=== PATIENT | male | born 1980 | race Caucasian/White ===

== ENCOUNTER 2022-08-07 17:36 | Emergency (ER) | payer OTHER, SELFPAY ==
[2022-08-07 17:48] VITALS: BP 151/90; PULSE 59; RESP 14; TEMP 36.7; O2SAT 99; BMI 24.3
--- NOTE | 2022-08-07 18:13 | ED_ITS ---
HPI - Male Genitourinary General: Chief complaint: Urogenital-Male Stated complaint: urinary pain Time Seen by Provider: 08/07/22 17:56 Source: patient Mode of arrival: ambulatory Limitations: no limitations History of Present Illness: 42-year-old male states that he was seen in [place] as he is having severe right-sided flank pain on the seventh he had a CT scan that showed an 11 mm kidney stone he states he lives in [place] she is driving home he stopped at the [facility] they did not have urology did give him a pain shot and he drove straight here states he is currently pain-free but [facility] to 4 hours ago he denies any dysuria denies any vomiting or diarrhea. Associated symptoms: Deny nausea or vomiting Review of Systems Const: Denies: fever(s), chills, body aches or change in appetite Eyes: Denies: blurry vision or eye discomfort ENMT: Denies: throat pain or dental pain Card: Denies: chest pain Resp: Denies: dyspnea GI: Denies: abdominal pain, nausea, vomiting or diarrhea : Reports: flank pain Musc: Denies: neck pain or back pain Skin/Breast: Denies: rash Neuro: Denies: headache(s) Psych: Denies: depression Edgar/Lymph: Denies: easy bruising All/Imm: Denies: urticaria PFSH ED PFSH: Medical History (Updated 08/07/22 @ 20:29 by Yanira Zaidi MD) No pertinent past medical history Social History (Updated 08/07/22 @ 18:14 by Yanira Zaidi MD) Substance/Drug Use: never Physical Exam Const: COMMON NORMALS: no acute distress, patient oriented x3 and healthy appearing HENMT: COMMON NORMALS: normocephalic and atraumatic HEAD & SCALP: normocephalic and atraumatic Eye: COMMON NORMALS: Equal, round and reactive pupils present and EOMs intact bilaterally PUPIL: Yes Equal, round and reactive pupils present Neck/C-Spine: COMMON NORMALS: full ROM and supple Chest: COMMONS NORMALS: normal inspection of the chest and normal palpation of entire chest wall Resp: COMMON NORMALS: normal respiratory effort, No retractions, No use of accessory muscles and clear to auscultation bilaterally AUSCULTATION: clear to auscultation bilaterally Cardio: COMMON NORMALS: regular rate, regular rhythm and No murmurs present (Cardio) RATE: regular rate RHYTHM: regular rhythm GI: COMMON NORMALS: Normal to inspection, nondistended, normoactive bowel sounds present, Soft to palpation, non-tender and no masses PALPATION: Yes Soft to palpation Extremity: COMMON NORMALS: normal to inspection and full ROM Neuro: COMMON NORMALS: patient oriented x3, moves all extremities and no focal motor deficits Psych: COMMON NORMALS: mental status grossly normal, Normal thought process present and cooperative THOUGHT PROCESS: Normal thought process present Skin: COMMON NORMALS: no rashes or lesions noted and no wounds GENERAL SKIN EXAM: no rashes or lesions noted Course Vital Signs: Vital signs: Vital Signs Temperature 98.1 F 08/07/22 17:48 Pulse Rate 59 L 08/07/22 20:32 Respiratory Rate 16 08/07/22 20:32 Blood Pressure 143/93 08/07/22 20:32 Pulse Oximetry 99 08/07/22 20:32 Oxygen Delivery Me thod 08/07/22 20:32 MDM - Male Medical Decision Making Patient presents here with kidney stone large 1 on the right side I did speak to Dr. Meneses he will follow-up tomorrow and likely get lithotripsy on Thursday we will place him on pain meds he is pain-free here no UTI he is stable for discharge she is return if worsening. Lab Data 08/07/22 18:30 08/07/22 18:30 Radiology Impressions Abdomen/Pelvis CT 08/07/22 19:05 IMPRESSION: 1. Bilateral obstructive uropathy, as described above. 2. Additional findings, as above. Laboratory Results WBC 8.4 10^3/uL (4.0-10.0) 08/07/22 18:30 RBC 4.71 10^6/uL (4.1-5.3) 08/07/22 18:30 Hgb 14.4 g/dL (11.7-16.6) 08/07/22 18:30 Hct 41.1 % (42.0-52.0) L 08/07/22 18:30 MCV 87.3 fl (80-94) 08/07/22 18:30 MCH 30.6 pg (28.0-34.0) 08/07/22 18:30 MCHC 35.0 g/dL (30.0-36.0) 08/07/22 18: RDW 11.9 % (12.1-15.1) L 08/07/22 18: Plt Count 155 10^3/cmm (130-400) 08/07/22 18:30 MPV 11.2 fL (7.4-10.4) H 08/07/22 18: Neut % (Auto) 70.2 % 08/07/22 18: Lymph % (Auto) 20.1 % 08/07/22 18: Meeker % (Auto) 7.4 % 08/07/22 18: Eos % (Auto) 1.9 % 08/07/22 18: Baso % (Auto) 0.2 % 08/07/22 18: Neut # (Auto) 5.85 10^3/uL (1.8-7.7) 08/07/22 18: Lymph # (Auto) 1.7 10^3/uL (0.8-4.8) 08/07/22 18:30 Meeker # (Auto) 0.6 10^3/uL (0.2-0.9) 08/07/22 18: Eos # (Auto) 0.2 10^3/uL (0.0-0.8) 08/07/22 18: Baso # (Auto) 0.0 10^3/uL (0.0-0.1) 08/07/22 18: Nucleated RBC % (auto) 0 % 08/07/22 18: Nucleated RBCs # 0.0 /100WBC 08/07/22 18:30 Sodium 138 mmol/L (136-145) 08/07/22 18:30 Potassium 3.5 mmol/L (3.5-5.1) 08/07/22 18: Chloride 103 mmol/L (98-107) 08/07/22 18: Carbon Dioxide 22 mmol/L (22-29) 08/07/22 18:30 Anion Gap 16.5 (5-19) 08/07/22 18:30 BUN 24 mg/dL (6-20) H 08/07/22 18:30 Creatinine 1.8 mg/dL (0.7-1.2) H 08/07/22 18:30 GFR Calculation 41.6 mL/min (90-130) L 08/07/22 18:30 Glucose 107 mg/dL (65-115) 08/07/22 18:30 Calculated Osmolality 291 mOsm/kg (285-295) 08/07/22 18:30 Calcium 9.1 mg/dL (8.5-10.5) 08/07/22 18:30 Total Bilirubin 0.3 mg/dL (0.15-1.2) 08/07/22 18:30 AST 18 U/L (0-40) 08/07/22 18:30 ALT 19 U/L (0-41) 08/07/22 18:30 Alkaline Phosphatase 72 U/L (40-130) 08/07/22 18:30 Total Protein 6.7 g/dL (6.6-8.7) 08/07/22 18:30 Albumin 4.2 g/dL (3.5-5.2) 08/07/22 18:30 Globulin 2.5 g/dL (1.3-4.6) 08/07/22 18:30 Lipase 37 U/L (13-60) 08/07/22 18:30 Urine Color Yellow (Yellow) 08/07/22 18:34 Urine Appearance Clear (CLEAR) 08/07/22 18:34 Urine pH 5 (5-7) 08/07/22 18:34 Ur Specific Boley 1.020 (1.005-1.030) 08/07/22 18:34 Urine Protein Neg (Negative) 08/07/22 18:34 Urine Glucose (UA) Norm (Normal) 08/07/22 18:34 Urine Ketones 1+ (Negative) H 08/07/22 18:34 Urine Blood 3+ (Negative) H 08/07/22 18:34 Urine Nitrate Negative (Negative) 08/07/22 18:34 Urine Bilirubin Neg (Negative) 08/07/22 18:34 Urine Urobilinogen Neg mg/dL (Negative) 08/07/22 18:34 Ur Leukocyte Esterase Negative (Negative) 08/07/22 18:34 Urine RBC 5-10 /hpf (0-2) H 08/07/22 18:34 Urine WBC 10-15 /hpf (0-5) H 08/07/22 18:34 Ur Squamous Epith Cells None /hpf (0-5) 08/07/22 18:34 Amorphous Sediment Not Reportable 08/07/22 18:34 Urine Bacteria None /hpf (NONE) 08/07/22 18:34 Discharge Plan Discharge Patient Disposition: Home Clinical Impression: Kidney stone Prescriptions: New ondansetron 4 mg tablet,disintegrating 4 mg PO Q6H PRN (Reason: nausea and vomiting) Qty: 14 0RF tramadol 50 mg tablet 50 mg PO BID PRN (Reason: pain) Qty: 20 0RF hydrocodone-acetaminophen 5-325 mg tablet 1 tab PO Q6H PRN (Reason: pain) Qty: 10 0RF Discharge Orders: Discharge ED (Routine); Ordered 08/07/22 Ordered By: Yanira Zaidi Referrals: Laura Niño MD [Primary Care Provider] - Discharge Diet: Advance as tolerated Discharge Activity: Resume usual activity Patient Instructions: Kidney Stones (ED) Coding Level of Care Code ED Furniture Removalist'S Assistant for Peter Nesbitt
[2022-08-07 18:42] LABS: Basophils % 0.2 %; Eosinophils # 0.2 10^3/uL (0.0-0.8); Eosinophils % 1.9 %; Hematocrit 41.1 % (42.0-52.0); Hemoglobin 14.4 g/dL (11.7-16.6); Lymphocytes # 1.7 10^3/uL (0.8-4.8); Lymphocytes % 20.1 %; Mean Corpuscular Hemoglobin 30.6 pg (28.0-34.0); Mean Corpuscular Volume 87.3 fl (80-94); Mean Platelet Volume 11.2 fL (7.4-10.4); Monocytes # 0.6 10^3/uL (0.2-0.9); Monocytes % 7.4 %; Neutrophils # 5.85 10^3/uL (1.8-7.7); Neutrophils % 70.2 %; Nucleated Red Blood Cells % 0 %; Platelet Count 155 10^3/cmm (130-400); Red Blood Count 4.71 10^6/uL (4.1-5.3); Red Cell Distribution Width 11.9 % (12.1-15.1); White Blood Count 8.4 10^3/uL (4.0-10.0)
[2022-08-07 19:01] LABS: Alanine Aminotransferase 19 U/L (0-41); Albumin Level 4.2 g/dL (3.5-5.2); Alkaline Phosphatase 72 U/L (40-130); Anion Gap 16.5 (5-19); Aspartate Amino Transferase 18 U/L (0-40); Blood Urea Nitrogen 24 mg/dL (6-20); Calcium 9.1 mg/dL (8.5-10.5); Carbon Dioxide 22 mmol/L (22-29); Chloride 103 mmol/L (98-107); Globulin 2.5 g/dL (1.3-4.6); Glomerular Filtration Rate 41.6 mL/min (90-130); Glucose 107 mg/dL (65-115); Lipase 37 U/L (13-60); Osmolality Calculated 291 mOsm/kg (285-295); Potassium 3.5 mmol/L (3.5-5.1); Sodium 138 mmol/L (136-145); Total Bilirubin 0.3 mg/dL (0.15-1.2); Total Protein 6.7 g/dL (6.6-8.7)
[2022-08-07 19:04] LABS: Creatinine Clr Calc Pharmacy 56.4441
--- NOTE | 2022-08-07 19:05 | CTR_ITS ---
PROCEDURE INFORMATION: Exam: CT Abdomen And Pelvis Without Contrast Exam date and time: 08/07/2022 8:02 PM Age: 42 years old Clinical indication: Abdominal pain; Flank; Right; Additional info: Right flank pain TECHNIQUE: Imaging protocol: Computed tomography of the abdomen and pelvis without contrast. Axial, coronal and sagittal reformatted images were created and reviewed. Radiation optimization: All CT scans at this facility use at least one of these dose optimization techniques: automated exposure control; mA and/or kV adjustment per patient size (includes targeted exams where dose is matched to clinical indication); or iterative reconstruction. REPORTING DATA: Count of CT and Cardiac NM exams in prior 12 months: This patient has received 0 known CTs and 0 known cardiac nuclear medicine studies in the 12 months prior to the current study. COMPARISON: No relevant prior studies available. RADIATION DOSE METRICS: Total DLP (mGy-cm): 504.53 FINDINGS: Liver: Unremarkable. Gallbladder and bile ducts: No radiodense gallstones. No biliary ductal dilatation. Pancreas: Unremarkable. Spleen: Mild splenomegaly. Adrenal glands: Normal. No mass. Kidneys and ureters: Mild to moderate right-sided hydronephrosis, secondary to a 9 mm proximal right ureteral calculus (axial image 111 and coronal image 62). Mild left-sided hydroureteronephrosis and perinephric/periureteral stranding, secondary to 2 adjacent distal left ureteral calculi, measuring up to 4 mm (axial images 186 and 187 and coronal images 75-77). Stomach and bowel: No bowel wall thickening. No obstruction. No pneumatosis. Appendix: Normal. Intraperitoneal space: Trace nonspecific free pelvic fluid, likely reactive. No organized fluid collection. No free air. Vasculature: Unremarkable. No aneurysm. Lymph nodes: No pathologically enlarged lymph nodes. Urinary bladder: Unremarkable as visualized. Reproductive: Unremarkable. Bones/joints: No acute osseous abnormality. Soft tissues: Unremarkable. CT/CT kidney stone [id number] IMPRESSION: 1. Bilateral obstructive uropathy, as described above. 2. Additional findings, as above.
--- NOTE | 2022-08-07 19:06 | PC.NURSE ---
Report from LENY Durham. Pt resting quietly. Denies needs at this time.
[2022-08-07 19:08] VITALS: BP 146/94; PULSE 61; RESP 16; O2SAT 99
[2022-08-07 19:19] LABS: Add Urine Microscopic? YES; Bilirubin Urine Neg (Negative); Blood Urine 3+ (Negative); Glucose Urine UA Norm (Normal); Ketones Urine 1+ (Negative); Leukocyte Esterase Urine Negative (Negative); Nitrate Urine Negative (Negative); Protein Urine Neg (Negative); Urine Appearance Clear (CLEAR); Urine Color Yellow (Yellow); Urobilinogen Urine Neg (Negative); pH Urine 5 (5-7)
[2022-08-07 20:32] VITALS: BP 143/93; PULSE 59; RESP 16; O2SAT 99
--- NOTE | 2022-08-08 09:46 | DCPLANNER ---
Addendum entered by Shannan Pink 08/12/22 07:30: Patient had an appointment scheduled with urology - patient did attend appointment. Original Note: underwriting manager had message to schedule a followup appointment for patient with urology. underwriting manager sent patients information to the front office staff at urology. Patients information will be printed and reviewed. Clinic will call patient with appointment information.
== END 2022-08-07 20:40 | disposition home or self-care (01) ==
PROVIDERS: Emergency Provider Emergency Medicine; PCP Family Medicine
DX: N20.0 Calculus of kidney (principal); N13.9 Obstructive and reflux uropathy, unspecified
CPT/HCPCS: 36415; 74176; 80053; 81001; 83690; 85025; 99284

== ENCOUNTER 2022-08-11 07:02 | Day surgery (SDC) | payer OTHER, SELFPAY ==
[2022-08-08 16:54] VITALS: BMI 24.3
[2022-08-11] VITALS (8 sets, daily range): BP systolic 100–153; BP diastolic 44–90; PULSE 46–98; RESP 12–20; TEMP 36.1–36.3; O2SAT 95–100
--- NOTE | 2022-08-11 07:09 | XR_ITS ---
WS: [id number] XR KUB [id number] REASON FOR EXAM: Preop treatment bilateral ureteral calculi FINDINGS: Mid right ureteral calculus at the L3 level. This appears unchanged in position compared to the CT sc an of 08/07/2022. Distal left ureteral calculus demonstrated on CT scan of 08/07/2022 is not readily identifiable. No other significant abnormality. XR/XR KUB [id number] IMPRESSION: Right ureteral calculus as above.
[2022-08-11] MEDS: sodium chloride 0.9% 1,000 ML 30 ML IV (07:40)
--- NOTE | 2022-08-11 08:05 | ANES.PREANE2 ---
Pre-Anesthetic Assessment Height/Weight: Height 1.78 m Weight 77.111 kg Temp Pulse Resp BP Pulse Ox O2 Del Method 97.0 F L 59 L 18 135/82 97 08/11/22 07:28 08/11/22 07:28 08/11/22 07:28 08/11/22 07:28 08/11/22 07:28 08/11/22 07:33 Preop Diagnosis: Right proximal ureteral stone with obstruction, left distal ureteral stone Operation Date: 08/11/22 08:40 Proposed Procedures p CYSTOSCOPY RIGHT EXTRACORPOREAL SHOCKWAVE LITHOTRIPSY STENT LEFT URETEROSCOPY LASER [id number], N20.9(Not Applicable) - MD silverio Aparicio ESWL(Right) - MD silverio Aparicio Ureteral Stent Placement(Bilateral) - MD silverio Aparicio Ureteroscopy(Not Applicable) - MD silverio Aparicio Laser Lithotripsy(Left) - Jason Meneses MD Familial anesthetic complications: none Was Beta Donald taken within 24 hours: N/A Was Clonidine taken within 24 hours: N/A Last intake: Intake Last Liquid Date 08/10/22 Last Liquid Time 23:30 Last Solid Date 08/10/22 Last Solid Time 23:30 Social Alcohol and No tobacco Exam alert, oriented x 3, clear to auscultation bilaterally and regular rate & rhythm Airway Submandibular: within normal limits Cervical ROM: within normal limits Mallampati: Class II Dentition: full Metabolic Hyperlipidemia Anesthetic Plan ASA status: 2 Anesthesia: General Medications/Allergies Home Medications Medication Instructions Recorded Confirmed Last Taken Type hydrocodone 5 mg-acetaminophen 325 1 tab PO Q6H PRN pain #10 tabs 08/07/22 08/10/22 Unknown Rx mg tablet ondansetron 4 mg disintegrating 4 mg PO Q6H PRN nausea and 08/07/22 08/10/22 Unknown Rx tablet vomiting #14 tabs tramadol 50 mg tablet 50 mg PO BID PRN pain #20 tabs 08/07/22 08/10/22 08/10/22 Rx atorvastatin 40 mg tablet 40 mg PO DAILY 08/08/22 08/10/22 08/10/22 History Allergies Allergy/AdvReac Type Severity Reaction Status Date / Time No Known Allergies Allergy Verified 08/07/22 17:52 PFSH Anesthesia Medical History Urolithiasis Data Anesthesia Cardiac Studies: No Data to Display
--- NOTE | 2022-08-11 08:08 | W.PM.OPSUD ---
Surgery/Procedure H&P Update DATE OF PROCEDURE: August 11, 2022 DATE H&P PERFORMED: 08/08/22 CHANGES TO PREVIOUS DOCUMENTATION: Physical exam: Alert oriented no acute distress HEENT atraumatic normocephalic Neck good range of motion Chest normal movements Cardiovascular regular rate and rhythm no murmurs Respiratory clear to auscultation no wheezes Abdomen is soft nontender no palpable masses Extremities without edema. Good range of motion Neurologic normal movements of all extremities. No focal deficit Preoperative KUB: The right mid ureteral stone is visualized well. I cannot see the left distal ureteral stones. Symptoms: Has become asymptomatic from the left distal ureteral stone perspective. He has not seen the left stone pass but I cannot clearly see it on the KUB. RECOMMENDATIONS: 1. We will place a stent on the right side preoperatively for a cystoscopy. 2. Left retrograde ureteropyelogram to confirm presence or absence of the left distal ureteral stone seen on CT scan. If the stone is still present then follow through with ureteroscopy laser lithotripsy of the left distal ureteral stone and treat the RIGHT ureteral stone with ESWL I explained all the above in detail with the patient. We reviewed again the rationale for the procedure. Risk benefits discussed. Informed consent obtained to proceed as outlined. No contraindications to surgery. He is not on any type of blood thinners PREOP DIAGNOSIS: Right proximal ureteral stone with obstruction, left distal ureteral stone PLANNED PROCEDURE: Operation Date: 08/11/22 08:40 Proposed Procedures p CYSTOSCOPY RIGHT EXTRACORPOREAL SHOCKWAVE LITHOTRIPSY STENT LEFT URETEROSCOPY LASER [id number], N20.9(Not Applicable) - Jason Meneses MD s ESWL(Right) - Jason Meneses MD s Ureteral Stent Placement(Bilateral) - Jason Meneses MD s Ureteroscopy(Not Applicable) - Jason Meneses MD s Laser Lithotripsy(Left) - Jason Meneses MD
[2022-08-11] MEDS: levofloxacin-dextrose 5 % 500 MG/100 ML PREMIX 100 MG IV (08:30)
--- NOTE | 2022-08-11 08:30 | P.OP_ITS ---
Operative Report Date of procedure: August 11, 2022 Pre-op diagnosis: Bilateral obstructing ureteral calculi Post-op diagnosis: Persistent large right proximal/mid ureteral stone Preoperatively spontaneously passed left distal ureteral stone Procedure done: 1. Cystoscopy with left retrograde ureteropyelogram 2. Right retrograde ureteropyelogram 3. Right ureteral extracorporeal shockwave lithotripsy 4. Right ureteroscopy and ureteral stent placement Implants: Right ureteral stent (6 Norwegian by 28 cm double-pigtail without string) Pathology: None Surgeon: Gideon Guitar Repair Technician: Edgard Farmer: Lithotripsy Rn Anesthesiology Estimated blood loss: None Urine output: Not measured Complications: None Findings: Anesthesia: General Condition: Stable Disposition: PACU Intraoperative findings: * LEFT retrograde ureteropyelogram demonstrated that the left ureteral stone had passed * Right ureteral calculus responded well to treatment with ESWL. Stent left indwelling but it was difficult to place and required direct visualization with ureteroscopy in order to negotiate the inflamed area. * On retrospect is clear that the stone had been there in the right ureter for some period of time creating an intense amount of inflammatory changes which made it difficult to pass the wire even after the stone was adequately fragmented. * For that reason it is anticipated that the stent will need to remain in place for several weeks with follow-up x-rays. It may require a relook ureteroscopy after passive dilation with the stent if the fragments are not easily passing through that narrowed area identified on ureteroscopy Brief History: Rai is a very pleasant 42-year-old white male with a history of recurrent stones having passed 4 spontaneously previously. [place] he had a severe left renal colicky episode and had a CT scan that showed obstructing stones. Was seen here again in our emergency department with complaints of refractory pain and CT scan showed a large 11 mm stone in the right proximal ureter with moderate to severe obstruction and a 4 to 5 mm stone in the LEFT distal ureter with significant obstruction as well. His creatinine was mildly elevated. He had no evidence of infection and he agreed to proceed with treatment. The plan was to perform an endoscopic treatment of the left distal ureteral stone and a ESWL to the right ureteral stone more proximally located. KUB preoperatively today demonstrated no easily identifiable stone in the left ureter and his symptoms had resolved. The right larger stone was easily identified in the right mid ureter We elected to perform a cystoscopy and LEFT retrograde ureteropyelogram to confirm presence or absence of the left distal ureteral stone and then proceed with stent placement and treatment of the right ureteral stone with ESWL. If the stone was still left plans were to proceed with initial approach of endoscopic treatment laser lithotripsy of that stone. Procedure: After routine preoperative evaluation examination and obtaining of informed consent he was taken to the operating suite on 08/11/2022 where general anesthesia was administered without difficulty after appropriate timeout was performed, SCDs confirmed to be functioning, prepped and draped in usual sterile fashion dorsolithotomy position pain careful attention to avoiding pressure points. 21 Norwegian cystoscope with 30 degree lens was introduced into the urethral meatus and advanced into the bladder to videoscopy. The bladder was systematically examined. No stone was seen. An 8 Norwegian cone-tip catheter was intubated into the LEFT ureteral orifice for LEFT RETROGRADE URETEROPYELOGRAM demonstrating: No filling defect consistent with a stone seen previously on CT scan. Normal flow of urine in a retrograde fashion in course and caliber of the ureter. Good drainage after the bulb was removed. Attention was then directed to the right side. A flexible tip guidewire was advanced at the right ureter but could not be passed proximal to the stone. It was curling at the distal tip of the stone. This wire was then exchanged for a Glidewire which same results. An open-ended ureteral catheter was then advanced just below the stone over the guidewire but this still did not facilitate passage. At this point the attempt at placement of a stent was abandoned with intention of placing it after ESWL treatment. He was then repositioned such that the stone was located at focal point with a shock head position posteriorly. Shockwave was initiated at a rate of 60 and a low intensity with advancement to an intensity of 6. A total of 1000 shocks were administered from the posterior shock head position. There was change noted with some proximal migration of fragments with the patient in Trendelenburg position. At 1000 shocks the shock it was then positioned anteriorly to approach the stone from a different angle. A total of 2500 shocks were administered with further change. The rate was increased to 90 for the final 1000 shocks The cystoscope was then passed back into the bladder and an 8 Norwegian cone-tip catheter was intubated into the RIGHT ureteral orifice for RIGHT RETROGRADE URETEROPYELOGRAM which demonstrated normal flow of contrast up the right ureter with some delay of contrast pushing past the stone fragments. There appeared to be a narrowed area just below the most distal stone fragment collection. Contrast did flow all the way into the kidney though. A flexible tip guidewire was then advanced up the right ureter but still could not be manipulated beyond the cluster of small fragments. An open-ended ureteral catheter was advanced over the guidewire which still did not facilitate that. A Glidewire was attempted as well again with no success. At this point it was decided to perform a ureteroscopy to see if that would facilitate passage. The cystoscope was then backloaded over the guidewire which was kept well below the level of the stone treatment to avoid any undue pressure on the ureter at that point. The distal ureter was dilated with a 15 Norwegian 10 cm balloon with no waist at 6 rosalino of pressure. A 7 Norwegian offset semirigid ureteroscope was then advanced over the guidewire up the right ureter. At the level of the ureter just below the stone fragment collection there was some small blood clots. There was a distinct narrowed area of the ureter and the guidewire was manipulated through this under direct vision initially resistant to passage but then passing through the cluster of stone fragments following the ureter as per contrast in the ureter up into the upper pole calyx where the wire curled. The ureteroscope was then removed leaving the wire in place and cystoscope was backloaded over the guidewire and a 6 Norwegian by 28 cm double-pigtail stent was advanced over the guidewire through the cystos cope into appropriate position as confirmed via fluoroscopy and cystoscopy stent was confirmed to be functioning well. The bladder was drained. He tolerated procedure well without complications and was awakened in the operating room and returned to PACU in stable condition PLANS: 1. Anticipate discharge from outpatient surgery 2. We will need to maintain the stent for an extended period of time for passive dilation and healing of the very inflamed ureter where the stone had been wedged for quite some period of time. 3. Is very likely that he will require relook ureteroscopy to reassess the ureter unless there is early and complete clearance of stone fragments. 4. I anticipate that the stone fragments may have some difficulty passing even with passive dilation of the stent due to the intense inflammatory change.
--- NOTE | 2022-08-11 09:11 | SUR.OPER ---
OMNIPAQUE 350MGI/ML 10ML TO STERILE FILED. LOT #[id number]. EXP 10/24/24. 3ML USED. 7 ML WASTED
[2022-08-11] MEDS: meperidine 50 mg/mL INJ 12.5 MG IVP (11:11)
--- NOTE | 2022-08-11 16:54 | ANE.PACU2 ---
Inpatient post-anesthesia follow up: Airway intact: Yes Vital signs: Temperature 97 F Pulse Rate 46 Respiratory Rate 18 Blood Pressure 131/83 Pulse Oximetry 99 Oxygen Delivery Me thod Room Air Oxygen Flow Rate 6 Fraction of Inspir ed Oxygen Hydration adequate: Yes Nausea and vomiting: No Pain level: 3 Mental status: Baseline
== END 2022-08-11 12:23 | disposition home or self-care (01) ==
PROVIDERS: Visit Provider Urology
PROC: 0TJB8ZZ Inspection of Bladder, Via Natural or Artificial Opening Endoscopic (ICD-10-PCS; CPT 52000; principal; 2022-08-11 08:30)
PROC: (CPT 50590; 2022-08-11 08:30)
PROC: (CPT 50605; 2022-08-11 08:30)
PROC: 0TJ98ZZ Inspection of Ureter, Via Natural or Artificial Opening Endoscopic (ICD-10-PCS; CPT 52351; 2022-08-11 08:30)
PROC: (CPT 74420; 2022-08-11 08:30)
DX: N20.1 Calculus of ureter (principal)
CPT/HCPCS: 50590; 52005; 74018; J1100; J1956; J2175; J2405; J2704; J3010; J3490; J7030

== ENCOUNTER 2022-09-02 14:45 | Outpatient (CLI) | payer OTHER, SELFPAY ==
--- NOTE | 2022-09-02 15:00 | XR_ITS ---
WS: [id number] XR KUB [id number] REASON FOR EXAM: STONES FINDINGS: Properly positioned right ureteral stent. Previous complex shape calculus in the mid left ureter is n ow fragmented and adjacent to the ureteral stent at the L4 transverse process level. Previous distal left ureteral calculi demonstrated on the CT scan of 08/07/2022 are not identified on t he current examination. No other urinary tract calculi. XR/XR KUB [id number] IMPRESSION: Right ureteral stent with fragmentation of right ureteral calculus.
== END 2022-09-02 14:46 | disposition home or self-care (01) ==
PROVIDERS: PCP Urology; Visit Provider Urology
DX: N20.9 Urinary calculus, unspecified (principal); Z96.0 Presence of urogenital implants; N20.1 Calculus of ureter
CPT/HCPCS: 74018; 81003; 99024

== ENCOUNTER 2022-09-17 06:39 | Day surgery (SDC) | payer OTHER, SELFPAY ==
[2022-09-16 08:11] VITALS: BMI 24.3
[2022-09-17] VITALS (8 sets, daily range): BP systolic 110–134; BP diastolic 71–81; PULSE 64–96; RESP 16–18; TEMP 36.1–37.2; O2SAT 93–96
--- NOTE | 2022-09-17 06:49 | SC_ITS ---
WS: [id number] C-arm fluoroscopy for right ureteral stent placement, 09/17/2022 Clinical Data: right ureteroscopy Comparison: KUB, 09/17/2022, 0655 hours Findings: Dr. Meneses performed a right ureteral catheter exchange. SC/C-arm FL for Urology Impression: Right ureteral catheter ending in right renal pelvis.
--- NOTE | 2022-09-17 06:49 | XR_ITS ---
WS: [id number] KUB, AP view, 09/17/2022 Clinical Data: Preop right ureteroscopy Comparison: KUB, 09/02/2022 Findings: No abnormal intraabdominal masses are seen. There is no dilatated small bowel or evidence of obstruct ion. Right ureteral stent remains in good position. There are calcifications overlying the lower pole the right kidney. The fragments that were adjacent to the proximal right ureteral stent are no longer pre sent. XR/XR KUB [id number] Impression: 1. Right ureteral stent. 2. Calcifications overlying inferior pole of the right kidney.
--- NOTE | 2022-09-17 06:52 | W.PM.OPSUD ---
Surgery/Procedure H&P Update DATE OF PROCEDURE: September 17, 2022 DATE H&P PERFORMED: 09/02/22 H&P UPDATE INFORMATION: I have reviewed H&P completed within last 30 days, I have examined patient prior to procedure, Changes to prior documentation as noted here and H&P is in [facility] EMR on date indicated CHANGES TO PREVIOUS DOCUMENTATION: There appears to be fewer stone fragments and may have migrated distally approximately an inch and 1/2 to 2 inches. Still a cluster but appears to be overall smaller burden with distal migration. There still remained a few small pieces in the right lower pole so we will plan on flexible ureteroscopy to see if those can be extracted or further treated with laser. PREOP DIAGNOSIS: Residual right ureteral/renal stone fragments PLANNED PROCEDURE: Operation Date: 09/17/22 08:05 Proposed Procedures p CYSTOSCOPY RIGHT RETROGRADE URETEROSCOPY LASER STENT 24033 MODIFIER 26 27370,N20.1(Not Applicable) - Jason Meneses MD s Retrograde Pyelogram(Right) - Jason Meneses MD s Ureteroscopy(Right) - Jason Meneses MD s Laser Lithotripsy(Right) - Jason Meneses MD s Ureteral Stent Placement(Right) - Jason Meneses MD
[2022-09-17] MEDS: sodium chloride 0.9% 1,000 ML 30 ML IV (07:18)
--- NOTE | 2022-09-17 08:42 | ANES.PREANE2 ---
Pre-Anesthetic Assessment Height/Weight: Height 1.78 m Weight 77.111 kg Temp Pulse Resp BP Pulse Ox O2 Del Method 98.9 F 64 18 134/81 96 Room Air 09/17/22 07:05 09/17/22 07:05 09/17/22 07:05 09/17/22 07:05 09/17/22 07:05 09/17/22 07:05 Preop Diagnosis: Residual right ureteral/renal stone fragments Operation Date: 09/17/22 08:05 Proposed Procedures p CYSTOSCOPY RIGHT RETROGRADE URETEROSCOPY LASER STENT 11402 MODIFIER 26 51511,N20.1(Not Applicable) - Jason Meneses MD s Retrograde Pyelogram(Right) - MD silverio Aparicio Ureteroscopy(Right) - Jason Meneses MD s Laser Lithotripsy(Right) - Jason Meneses MD s Ureteral Stent Placement(Right) - Jason Meneses MD Familial anesthetic complications: none Was Beta Donald taken within 24 hours: N/A Was Clonidine taken within 24 hours: N/A Last intake: Intake Last Liquid Date 09/16/22 Last Liquid Time 19:00 Last Solid Date 09/16/22 Last Solid Time 19:00 Social Alcohol and No tobacco Exam alert, oriented x 3, clear to auscultation bilaterally and regular rate & rhythm Airway Submandibular: within normal limits Cervical ROM: within normal limits Mallampati: Class II Dentition: full Metabolic Hyperlipidemia Anesthetic Plan ASA status: 2 Anesthesia: General Medications/Allergies Home Medications Medication Instructions Recorded Confirmed Last Taken Type hydrocodone 5 mg-acetaminophen 325 1 tab PO Q6H PRN pain #10 tabs 08/07/22 09/16/22 Unknown Rx mg tablet ondansetron 4 mg disintegrating 4 mg PO Q6H PRN nausea and 08/07/22 09/16/22 Unknown Rx tablet vomiting #14 tabs tramadol 50 mg tablet 50 mg PO BID PRN pain #20 tabs 08/07/22 09/16/22 08/10/22 Rx atorvastatin 40 mg tablet 40 mg PO DAILY 08/08/22 09/16/22 09/16/22 History Allergies Allergy/AdvReac Type Severity Reaction Status Date / Time No Known Allergies Allergy Verified 09/02/22 15:47 Current Medications Generic Name Dose Route Start Last Admin Trade Name Freq PRN Reason Stop Dose Admin Sodium Chloride 1,000 mls @ 30 mls/hr 09/17/22 07:00 09/17/22 07:18 Sodium Chloride 0.9% IV 09/18/22 06:59 30 mls/hr .Q24H JACQUELINE Administration PFSH Anesthesia Medical History (Updated 09/02/22 @ 15:52 by Yumiko Gonsalves) Kidney stone Urolithiasis Surgical History (Updated 09/01/22 @ 17:45 by Jason Meneses MD) History of lithotripsy Social History (Updated 09/02/22 @ 15:54 by Yumiko Gonsalves) Smoking and tobacco status: current every day smoker Alcohol intake: current Marital status: Single Current occupational status: other Details: Self employed Data Anesthesia Cardiac Studies: No Data to Display
--- NOTE | 2022-09-17 09:35 | PM.OP ---
Operative Report Date of procedure: September 17, 2022 Pre-op diagnosis: Residual right ureteral/renal stone fragments Post-op diagnosis: Residual right ureteral/renal stone fragments Procedure done: 1. Cystoscopy, removal of right ureteral stent 2. Right retrograde ureteropyelogram 3. Right ureteroscopy with stone extraction 4. Right renoscopy stone extraction Specimens removed/disposition: Stone fragments Pathology: Stone fragments Surgeon: Gideon Estimated blood loss: Minimal Urine output: Not measured Complications: None Findings: Anesthesia: General Condition: Stable Disposition: PACU Intraoperative findings: He had approximately 8 to 9 stone fragments in the ureter in the expected position that were removed with grasping forceps and a basket. Additional stone fragments in kidney with one removed and 2 or 3 further fragmented with a 200 ?m thulium superpulse laser fiber 6 [place] by 28 cm double-pigtail stent left indwelling for further healing The site of the stone impaction was still inflamed but healing well. Brief History: Héctor is a very pleasant 42-year-old white male recently discovered to have a large chronically obstructing right mid ureteral stone with minimal symptomatology discovered at time of evaluation for LEFT renal colic associated with left distal ureteral stone. He was really asymptomatic from the right stone. The large right mid ureteral calculus was treated with ESWL. There was some difficulty placing a stent afterwards but ultimately the wire went without unusual measures and a stent was placed. On postop follow-up he was found to have a cluster of stones at the same site and some that had migrated into the right lower pole. Based on the degree of likely inflammatory response to the stone being located in 1 spot for such a long time it was decided to wait and then relook before completely removing the stent. Preop KUB today showed that the stone cluster was still present but had migrated distally. Plan was to perform endoscopic clearance of the stone fragments and to reassess the status of the ureter from the chronic inflammatory changes resulting from the stones longstanding duration at that spot Procedure: After routine preoperative evaluation examination and obtaining of informed consent he was taken to the operating suite on 09/17/2022 where general anesthesia was administered without difficulty after appropriate timeout was performed, SCDs confirmed to be functioning, preoperative antibiotics administered, beta-jorge protocol confirmed. Prepped and draped in usual sterile fashion in dorsolithotomy position pain careful attention to avoiding pressure points. 21 [place] cystoscope with 30 degree lens was introduced into urethra meatus and advanced into the bladder to videoscopy. The bladder was systematically examined. No stones were seen. A flexible tip guidewire was advanced next to the right ureteral stent up into the kidney without difficulty. The stent was grasped with grasping forceps and withdrawn without difficulty. The wire was secured to the drapes as a safety wire. A 7 [place] offset semirigid ureteroscope was then advanced into the bladder and up the right ureter next to the guidewire. The ureter was carefully inspected. The scope was then passed to the level of the stones and it was decided to remove them intact without laser. A wire was passed to act as the working wire and the scope was removed. A 38 cm ureteral access sheath was advanced over the working wire under fluoroscopic monitoring to just below the level of the stones. The scope was then repassed and the stones were one by one removed with combination of basket and grasping forceps. There is no problem with the stones being tight etc. All easily passed through the sheath. Once it was confirmed that the stone fragments in the ureter were completely cleared the scope was passed more proximally. The area of initial impaction of the stone was still quite inflamed but was healing. The ureter proximal to the site of impaction was nicely dilated. The scope was passed all the way to the UPJ and no additional stones were seen. The lower pole fragments were identified on fluoroscopy. The semirigid ureteroscope was removed and a flexible ureteroscope was passed without difficulty through the sheath into the renal pelvis. 3 specific stones were identified. One was removed with a basket without difficulty. The other 2 were felt to be a little bit too large to easily withdrawal and for that reason were fragmented with a 200 ?m thulium superpulse laser fiber. What was left was just sand and no pieces of any consequence. The sheath was backed down to the hub of the scope and the ureter was carefully inspected as the scope was removed. The primary of inflammation was the initial impaction site. The rest of the ureter looked pretty good. It was decided to leave a stent in for further healing of the impaction site. Cystoscope was then backloaded over the safety wire and a 6 [place] by 28 cm double-pigtail stent without string was advanced over the guidewire through the cystoscope into appropriate position as confirmed via fluoroscopy and cystoscopy. The stent was confirmed to be draining. The bladder was drained and the procedure was completed. He tolerated procedure well without complications and was awakened in the operating room and returned to PACU in stable condition. PLANS: 1. Anticipate discharge from outpatient surgery 2. Follow-up late next week for cystoscopy and stent removal
[2022-09-17] MEDS: levofloxacin-dextrose 5 % 500 MG/100 ML PREMIX 100 MG IV (09:38)
[2022-09-17] MEDS: iohexol 350 mg/mL 100 mL Btl 10 ML XX (10:10)
--- NOTE | 2022-09-17 12:36 | ANE.PACU2 ---
Inpatient post-anesthesia follow up: Airway intact: Yes Vital signs: Temperature 97 F Pulse Rate 82 Respiratory Rate 18 Blood Pressure 120/79 Pulse Oximetry 93 Oxygen Delivery Me thod Room Air Oxygen Flow Rate Fraction of Inspir ed Oxygen Hydration adequate: Yes Nausea and vomiting: No Pain level: 2 Mental status: Baseline
== END 2022-09-17 12:19 | disposition home or self-care (01) ==
PROVIDERS: PCP Family Medicine; Visit Provider Urology
PROC: (CPT 74420; 2022-09-17 08:05)
PROC: 0TJ98ZZ Inspection of Ureter, Via Natural or Artificial Opening Endoscopic (ICD-10-PCS; CPT 52351; 2022-09-17 08:05)
PROC: (CPT 52352; 2022-09-17 08:05)
PROC: (CPT 52352; 2022-09-17 08:05)
PROC: 0TJB8ZZ Inspection of Bladder, Via Natural or Artificial Opening Endoscopic (ICD-10-PCS; CPT 52000; 2022-09-17 08:05)
DX: N20.2 Calculus of kidney with calculus of ureter (principal); Z87.442 Personal history of urinary calculi; E78.5 Hyperlipidemia, unspecified; Z79.891 Long term (current) use of opiate analgesic; F17.200 Nicotine dependence, unspecified, uncomplicated
CPT/HCPCS: 52352; 52353; 74018; 76000; 82365; 88300; J1100; J1956; J2405; J2704; J3010; J3490; J7030; Q9967

== ENCOUNTER 2022-09-25 13:29 | Outpatient (CLI) | payer OTHER, SELFPAY ==
--- NOTE | 2022-09-25 13:39 | XR_ITS ---
WS: [id number] Exam: XR KUB [id number] Date/Time of Exam: 09/25/2022 2:15 PM Reason For Exam: stones No bowel obstruction or free air. A right-sided ureteral stent catheter is in place appearing to be i n satisfactory location. Questionable 3 mm calcification superimposing the lower pole the right kidne y. This could be a renal stone. No sign of organ enlargement. Bony structures are intact. XR/XR KUB [id number] IMPRESSION: 1. No acute finding. 2. Right-sided ureteral stent catheter in satisfactory position. 3. 3 mm calcification overlying the lower pole the right kidney that could be a renal stone but is nonspecific in appearance
== END 2022-09-25 13:30 | disposition home or self-care (01) ==
LOC: RAD 13:33
PROVIDERS: PCP Family Medicine; Visit Provider Urology
DX: N20.1 Calculus of ureter (principal)
CPT/HCPCS: 74018; 81003; 99024

== ENCOUNTER → 2022-10-06 09:19 | Outpatient (BNVA) | payer OTHER, SELFPAY | PROVIDERS: PCP Family Medicine; Visit Provider Urology | DX: Z96.0 Presence of urogenital implants (principal); N20.9 Urinary calculus, unspecified | CPT/HCPCS: 52310; 81003 ==

== ENCOUNTER 2022-11-26 11:03 | Outpatient (CLI) | payer OTHER, SELFPAY ==
--- NOTE | 2022-11-26 11:13 | XR_ITS ---
WS: [id number] Exam: XR KUB [id number] Date/Time of Exam: 11/26/2022 11:22 AM Reason For Exam: stones No bowel obstruction or free air. No sign of organ enlargement. Regional bony elements are intact. XR/XR KUB [id number] IMPRESSION: 1. Negative KUB.
== END 2022-11-26 11:04 | disposition home or self-care (01) ==
PROVIDERS: PCP Family Medicine; Visit Provider Urology
DX: N20.9 Urinary calculus, unspecified (principal)
CPT/HCPCS: 74018; 81003; 99024